=== PATIENT | male | born 1950 | race Caucasian/White ===

== ENCOUNTER 2017-02-14 05:34 | Inpatient (IN) ==
--- NOTE | 2017-02-02 11:35 | EKG Report ---
Stationary ECG Study [facility] Test Date: 02/02/2017 11:37:34 AM Pat Name: LIDA COBOS Department: Room: Gender: M Tow Mate: NEGRO : 1950 Requested by: Yuri Block Order Number: [id number] Harpal MD: ARTURO LINDSAY Intervals [place] Rate: 85 P: 999 CO: 0 QRS: 5 QRSD: 142 T: 32 QT: 375 QTc: 417 Interpretive Statements ELECTRONIC VENTRICULAR PACEMAKER LBBB Electronically Signed On 02-02-17 11:43:20 CDT by ARTURO LINDSAY [email or web address]
[2017-02-02 11:38] LABS: Basophils # 0.1 10*3/uL (0.0-0.2); Basophils % 0.6 % (0.0-0.8); Eosinophils # 0.2 10*3/uL (0.0-0.87); Eosinophils % 2.3 % (0.00-10.9); Hematocrit 47.4 VOL% (42.0-52.0); Hemoglobin 16.3 GM/DL (14.0-18.0); Immature Granulocytes % 0.3 %; Immature Granulocytes Absolute 0.03 #; Lymphocytes # 2.8 10*3/uL (1.4-4.0); Lymphocytes % 27.9 % (21.2-54.2); Mean Corpuscular HGB Conc 34.4 GM/DL (32-36); Mean Corpuscular Hemoglobin 28 PG (27-34); Mean Corpuscular Volume 82.6 FL (87-102); Mean Platelet Volume 9.9 FL (9.6-12.0); Monocytes % 10.2 % (1.7-12.7); Neutrophils # 5.8 10*3/uL (1.4-7.4); Neutrophils % 58.7 % (38.7-73.9); Platelet Count 328 T/CUMM (130-400); Red Blood Count 5.74 MC/CUMM (3.8-5.5); Red Cell Distribution Width 12.9 % (9.3-17.3); White Blood Count 9.9 T/CUMM (4-12)
[2017-02-02 11:39] LABS: Apearance,Urine CLEAR (Clear); Bilirubin,Urine Negative (Negative); Blood, Urine Negative (Negative); Glucose,Urine (UA) Negative (Negative); Ketones,Urine Negative (Negative); Mucus,Urine Occasional /LPF (Occasional); Nitrite,Urine Negative (Negative); Protein,Urine Negative; RBC,Urine <1 /HPF (0-4); Urine Color Yellow (Yellow); Urine Specific Gravity 1.015 (1.001-1.035); Urine Urobilinogen < 2.0 EU/DL (0.2-1.0); WBC,Urine 1 /HPF (0-6)
[2017-02-02 12:02] LABS: INR 1.1; Partial Thromboplastin Time 38.7 SECS (0-40)
[2017-02-02 12:34] LABS: Albumin 4.1 G/DL (3.4-5.0); Bilirubin,Total 0.8 MG/DL (0.2-1.0); Calcium 10.2 MG/DL (8.5-10.1); Osmolality,Calculated 277.5 MOS/KG (273-304); Potassium 4.7 MMOL/L (3.5-5.1); Total Protein 7.7 G/DL (6.4-8.3)
--- NOTE | 2017-02-02 13:31 | XRay Report ---
Exam: XR chest 2V Date: 02/02/2017 11:05 AM Indication: Respiratory preop evaluation of the chest Comparison: 11/14/2016 Technical: PA lateral Findings: Cardiac pacing device with implantable defibrillator leads and atrial ventricular and coronary sinus lead suspected. ASVD is present. No obvious consolidating infiltrate or effusion. The mediastinum is otherwise intact. Impression: 1. Stable appearance of the cardiac pacing defibrillator device with mild cardiomegaly without decompensation. PROCEDURE INTERPRETED AT [facility] DEPARTMENT OF RADIOLOGY Final Report Signed by: Dr. Otto Hillman
[2017-02-14] MEDS ORDERED: VANCOMYCIN INJ 1,000 MG in SODIUM CHLORIDE 0.9% 250 ML IV ONE ×2 (06:00→18:04)
--- NOTE | 2017-02-14 06:44 | History and Physical Update ---
History and Physical Update - History and Physical H&P was reviewed, the patient examined and there: are no changes in the patients condition since last H&P was completed.
[2017-02-14] MEDS ORDERED: SODIUM CHLORIDE 0.9% 100 ML IV ONE ×2 (07:02→11:56)
[2017-02-14] MEDS ORDERED: ceFAZolin 1,000 MG VIAL ONE (07:02)
[2017-02-14] MEDS ORDERED: VANCOMYCIN 1,000 MG VIAL ONE (07:02)
[2017-02-14] MEDS ORDERED: LACTATED RINGERS 1,000 ML IV SCH (07:30)
[2017-02-14] MEDS ORDERED: TRANEXAMIC ACID 1,000 MG/10 ML VIAL IV ONE (09:26)
[2017-02-14] MEDS ORDERED: BACITRACIN OINT 0.9 GM PACK TOP ONE (09:31)
[2017-02-14] MEDS ORDERED: PROPOFOL 200 MG/20 ML VIAL IV ONE (09:43)
[2017-02-14] MEDS ORDERED: ONDANSETRON 4 MG/2 ML VIAL ONE (09:43)
[2017-02-14] MEDS ORDERED: LIDOCAINE 2% 5 ML VIAL ONE (09:43)
[2017-02-14] MEDS ORDERED: ETOMIDATE 20 MG/10 ML VIAL IV ONE (09:43)
[2017-02-14] MEDS ORDERED: PHENYLEPHRINE 1 MG/10 ML SYRINGE IV ONE (09:43)
[2017-02-14] MEDS ORDERED: SUCCINYLCHOLINE 200 MG/10 ML VIAL ONE (09:43)
[2017-02-14] MEDS ORDERED: ALBUTEROL/IPRATROPIUM 3 ML NEB RESP TX PRN (09:59)
[2017-02-14] MEDS ORDERED: ZALEPLON 5 MG CAPSULE PO PRN (10:04)
[2017-02-14] MEDS ORDERED: diphenhydrAMINE CAP 25 MG CAPSULE PO PRN (10:04)
[2017-02-14] MEDS ORDERED: ONDANSETRON 4 MG/2 ML VIAL IV PRN (10:04)
[2017-02-14] MEDS ORDERED: MAGNESIUM HYDROXIDE SUSP 30 ML UDCUP PO PRN (10:04)
[2017-02-14] MEDS ORDERED: DEXTROSE 50% 25 GM/50 ML VIAL IV PRN (10:06)
[2017-02-14] MEDS ORDERED: GLUCAGON 1 MG VIAL IM PRN (10:06)
--- NOTE | 2017-02-14 10:10 | Operative Note ---
Procedure: DIAGNOSIS: Left knee primary osteoarthrosis PROCEDURE: Left total knee arthroplasty (cpt #59882) SURGEON: Sedrick ANESTHESIA: General with a postoperative adductor canal block PROCEDURE and FINDINGS: After adequate was induced, the patient's knee was prepped and draped in the usual sterile fashion. The limb was exsanguinated with Esmarch. Tourniquet was inflated to 300 mmHg. A median parapatellar approach was made. Femur was cut using an intramedullary guide and a 4 in 1 cutting jig in 5 degrees of valgus. ACL and menisci were excised. Tibia was cut using intramedullary guide. Patella was cut using freehand technique. Components were trialed. Tibial fin was prepared. Components are cemented in place using Palacos cement and modern cementing techniques. Cement was removed. A 1/8 inch Hemovac drain was placed. The knee was well-balanced and full range of motion with central tracking patella. Deep layers closed with 0-0 Vicryl. Superficial layers were closed with 2-0 and 3-0 Vicryl. Skin was approximated with brian. Bacitracin and a sterile dressing was applied. Patient was transferred to recovery. A postoperative adductor canal block is anticipated. COMPONENTS: The Francis Persona system was used. 11 CR standard femur, G natural tibia, 11 mm liner, 38 mm patella TOURNIQUET TIME: 42 minutes Surgeon / Physician: Yuri Dubose Jr. Results - Labs CBC & BMP: 02/02/17 11:23 02/02/17 11:23 Discharge Plan - Discharge Medications No Action Glimepiride 4 mg PO BID Levothyroxine Tab [Synthroid Tab] 50 mcg PO AC BREAKFAST Tramadol HCl [Tramadol Tab] 100 mg PO Q8HR PRN PRN Reason: Pain amLODIPine [Norvasc] 10 mg PO BEDTIME Metoprolol Succinate Xl [Toprol Xl] 100 mg PO QAM metFORMIN [Glucophage] 500 mg PO BID Albuterol/Ipratropium Neb [Duoneb] 3 ml RESP TX BID PRN PRN Reason: Shortness Of Breath Dabigatran [Pradaxa] 150 mg PO BID #0 Montelukast Tab [Singulair Tab] 10 mg PO DAILY - Follow Up or Referral - Forms/Instructions
[2017-02-14] MEDS ORDERED: ACETAMINOPHEN 1,000 MG/100 ML VIAL IV ONE (11:56)
[2017-02-14] MEDS ORDERED: fentaNYL 100 MCG/2 ML VIAL ONE (11:56)
[2017-02-14] MEDS ORDERED: LACTATED RINGERS 1,000 ML IV ONE (11:56)
[2017-02-14] MEDS ORDERED: MIDAZOLAM 2 MG/2 ML VIAL ONE (11:56)
[2017-02-14] MEDS ORDERED: SEVOFLURANE 1 UNIT/15 MINUTE INH ONE (11:56)
[2017-02-14] MEDS ORDERED: ALBUTEROL/IPRATROPIUM 3 ML NEB RESP TX ONE (12:07)
--- NOTE | 2017-02-14 12:12 | XRay Report ---
XR knee 2V LT Clinical Information: Joint replacement (left knee), Postop Comparison: None available Findings: Right iliac spines postsurgical changes are noted. Overlying soft tissue drains and brian are noted. Mild atherosclerotic ossification of the vasculature is partially imaged. Impression: Postoperative changes without evidence of acute complication. PROCEDURE INTERPRETED AT [facility] DEPARTMENT OF RADIOLOGY Final Report Signed by: Blade Howe
[2017-02-14] MEDS ORDERED: KETOROLAC 60 MG/2 ML VIAL IM ONE ×2 (12:18→12:19)
--- NOTE | 2017-02-14 12:32 | Anesthesia Post-Op ---
Anesthesia Post OP - Post Ansesthetic Evaluation Patient seen in post op: Yes Resp: within normal limits CV: within normal limits Mental: within normal limits Temp: within normal limits Lvqu-Ao-Jselzirms: within normal limits Nausea and Vomiting: within normal limits Pain: within normal limits
[2017-02-14] MEDS: KETOROLAC 30 MG/1 ML VIAL IV SCH ×3 (13:28→22:02)
[2017-02-14] MEDS: HYDROmorphone 2 MG/1 ML VIAL IV PRN ×3 (13:39→23:55)
[2017-02-14] MEDS: INSULIN LISPRO 100 UNIT/ML SUBCUT SCH ×3 (13:46→21:00)
--- NOTE | 2017-02-14 15:29 | Orthopedic Progress Note ---
Orthopedics - Subjective Interval history: Comfortable postop. Currently working with physical therapy. Dressing clean, dry and intact. He can perform a straight leg raise. Neurovascular okay. Plan: Continue current orders. Exam - Constitutional Vitals: Period Temp Pulse Resp BP Sys/Fraire Pulse Ox Last 24 Hr 97.0 F-98.1 F 60-74 18-28 128-157/72-99 89-94 Results - Labs CBC & BMP: 02/02/17 11:23 02/02/17 11:23
[2017-02-14] MEDS: ACETAMINOPHEN 500 MG TABLET PO SCH ×2 (17:25→20:51)
[2017-02-14] MEDS: LACTATED RINGERS 1,000 ML IV SCH ×2 (17:45→20:59)
--- NOTE | 2017-02-14 18:06 | Cardiology Consult Note ---
David Ivy Vanessa RN, am scribing for, and in the presence of, Lauren Hough DO 18 :05. Assessment and Plan - Time spent with patient Time spent with patient: Greater than 30 minutes (Due to assessment, planning, documentation, and medication review) (1) Status post left knee replacement Status: Acute Assessment and plan: Status post total left knee replacement per Dr. Dubose. Will defer primary management to orthopedic services. From a cardiac standpoint, patient is stable postoperatively. Monitor postoperative EKG. Current Visit: Yes (2) Chronic anticoagulation Status: Chronic Assessment and plan: Patient has been chronically anticoagulated with Pradaxa for stroke prevention. Patient's last dose of Pradaxa was on February 10. Anticoagulant needs to be resumed when okay from surgical standpoint however, patient has experienced some recent GI discomfort and stomach cramp and has spoken with Dr. Menjivar in regards to changing anticoagulation back to Coumadin. Patient is to resume Coumadin at 5 mg by mouth daily when okay from a surgical standpoint. He will then follow-up at Coumadin clinic for PT/INR in 2 weeks. Current Visit: Yes (3) Biventricular cardiac pacemaker in situ Status: Chronic Assessment and plan: This is stable. Patient is 100% dependent on biventricular pacing. Current Visit: Yes (4) Hypothyroidism Status: Chronic Assessment and plan: Synthroid has been continued. Current Visit: Yes (5) Hypertension Status: Chronic Assessment and plan: Overall, fairly well-controlled. Monitor closely and adjust antihypertensive regimen as indicated. Current Visit: Yes (6) History of coronary artery disease Status: Chronic Assessment and plan: Mild to moderate disease with no fixed obstructive coronary disease per left heart catheterization in October 2016. Current Visit: Yes (7) Chronic atrial fibrillation Status: Chronic Assessment and plan: Ventricular response has been well controlled with beta-henok. Patient is anticoagulated for stroke prevention with Pradaxa. Current Visit: Yes (8) CHF (congestive heart failure), NYHA class III Status: Chronic Assessment and plan: At this time, patient appears to be fairly well compensated with no overt s/s of heart failure. Current Visit: No (9) Diabetes mellitus Status: Chronic Assessment and plan: Continue SSI. Current Visit: No (10) Non-ischemic cardiomyopathy Status: Chronic Assessment and plan: Decreased EF 35%. Patient is now status post biventricular AICD implant. Current Visit: No (11) CED (obstructive sleep apnea) Status: Chronic Current Visit: Yes (12) Hyperlipidemia Status: Chronic Current Visit: Yes History of Present Illness - Data of Consult Patient: known to practice within the last 3 years Consult date: 02/14/17 Requesting Physician: Yuri Dubose Jr. - Consult Narrative Reason for consult: katharina operative cardiac medical management History of present illness: PRIMARY GLOBAL CTO: DR. MENJIVAR Mr. Mayen is a 66 year old white male with risk factors significant for: age, hypertension, diabetes, hyperlipidemia, known personal and family history of coronary artery disease. Past medical history includes chronic atrial fibrillation, obstructive sleep apnea, hypothyroidism, nonischemic cardiomyopathy with EF 35%, status post AV node ablation with biventricular AICD implant in October [address] Rojas. He is chronically anticoagulated with Pradaxa. He has been evaluated by Dr. Farris for persistent cough and dyspnea with exertion. He has had PFTs completed and has been diagnosed with bronchospastic airway disease. Prior to biventricular pacing implant, patient underwent left and right heart catheterization in October 2016 for exertional dyspnea and chest discomfort showed some mild to moderate coronary disease but no significant obstructive disease and moderate pulmonary hypertension with PA pressure 40-42 mmHg. Patient was last seen in clinic by Dr. Menjivar on December, and at that time persistent cough had resolved after Cozaar was stopped per Dr. Farris. He did not further exertional dyspnea or other complaint. Patient's blood pressure is reasonably controlled on current medication regimen. He was cleared for total left knee replacement surgery from a cardiovascular standpoint. Patient is now status post total left knee replacement cardiology now asked to see for perioperative cardiac medical management. Patient presented to [facility] earlier this month for plan orthopedic surgery, and this was performed without event per Dr. Dubose. Patient's reports patient had some difficulty with oxygen saturations while in PACU and pain medication had to be conserved. However, patient was transferred to [facility] floor from PACU on supplemental oxygen via nasal cannula, and upon bedside exam, SaO2 is 97%. Patient is awake and pleasant. He has just received IV Dilaudid for left knee discomfort. Denies chest pain, dyspnea, or anginal complaint. No dizziness, palpitation presyncope, or other. BP 134/89. Mr. Mayen's biggest concern at this time is in regards to his anticoagulation and desire to change from Pradaxa to Coumadin. CC: Yuri Dubose Jr., - Home Medications and Allergies Home Medications: Home Medications Medication Instructions Recorded Confirmed Type Glimepiride 4 mg PO BID 05/27/16 02/14/17 History Levothyroxine Tab [Synthroid Tab] 50 mcg PO AC BREAKFAST 05/27/16 02/14/17 History Tramadol HCl [Tramadol Tab] 100 mg PO Q8HR PRN 05/27/16 02/14/17 History amLODIPine [Norvasc] 10 mg PO BEDTIME 10/26/16 02/14/17 History Metoprolol Succinate Xl [Toprol Xl] 100 mg PO QAM 11/10/16 02/14/17 History Dabigatran [Pradaxa] 150 mg PO BID #0 11/13/16 02/14/17 Rx metFORMIN [Glucophage] 500 mg PO BID 11/14/16 02/14/17 History Albuterol/Ipratropium Neb [Duoneb] 3 ml RESP TX BID PRN 02/02/17 02/14/17 History Montelukast Tab [Singulair Tab] 10 mg PO DAILY 02/02/17 02/14/17 History Allergies/Adverse Reactions: Allergies Allergy/AdvReac Type Severity Reaction Status Date / Time codeine Allergy Severe Confusion Verified 02/14/17 07:17 morphine Allergy Unknown Confusion Verified 02/14/17 07:17 Ryhoems-Prb-Nlu Reductase Allergy Unknown Fatigued Verified 02/14/17 07:17 Inhibitor Sulfa (Sulfonamide Allergy Unknown RASH Verified 02/14/17 07:17 Antibiotics) 12 point system: reviewed and no additional remarkable complaints except as stated - EENT Nose, mouth and throat: Absent: dysphagia - Cardiovascular Cardiovascular: Absent: chest pain at rest, edema - Respiratory Respiratory: Absent: dyspnea, wheezing - Gastrointestinal Gastrointestinal: Present: bloating, cramping, dyspepsia, heartburn. Absent: fecal incontinence - Genitourinary Genitourinary: Absent: difficulty urinating - Musculoskeletal Musculoskeletal: Absent: joint swelling - Neurological Neurological: Present: abnormal gait - Psychiatric Psychiatric: Absent: anxiety, depression - Endocrine Endocrine: Absent: cold intolerance, heat intolerance - Hematologic/Lymphatic Hematologic/Lymphatic: Absent: easy bleeding, easy bruising Medical,Surgical,& Family Hx - Medical History Cardio: History of: Cardiac Dysrhythmia (afib), Hypertension, Pacemaker (2004; REPLACEMENT 2013), Cardiovascular Problems (DR MENJIVAR/DR ROJAS. CARDIOMEGLY. PT RELIANT ON PACEMAKER.) Neurology: No history of: Seizures HEENT: History of: Ear Problem (FALSE PASS), Eye Problem (READING GLASSES) Endocrine: History of: Diabetes Mellitus (NIDDM), Thyroid Disorder Respiratory: History of: Obstructive Sleep Apnea (non compliant; PT DOES NOT USE CPAP. BREATHING TX BID.), Respiratory Problems (FLU VAC-NO;PNEU VAC- NO. SOB AND COUGH WTH WHITE SPUTUM. DR FARRIS.) Genitourinary: History of: Kidney Stones (15 years ago) Musculoskeletal: History of: Back/Neck Problems (neck 1982, back 2013; [facility]) - Surgical History Cardiac Surgeries: Sugical HX of: Cardiac Catheterization, Cardiac Surgery ( ABLATION 06/2016. DR ROJAS.), Internal Defibrillator Orthopedic Surgeries: Surgical HX of;: Implanted Devices (PACEMAKER), Spinal Surgery (NECK SURGERY 1987; LASER 2013) - Family History Family History: Reports;: Family Cancer (father prostate cancer), Family Diabetes (mother), Family Heart Disease (parents), Family Hypertension (parents) - Social History Smoking Status: Never smoker Frequency of Alcohol Use: None Type of Drug Use: None Marital Status: Lives With:: Spouse Functional capacity: independent ambulation Physical Examination Vital Signs Temp Pulse Resp BP Pulse Ox 97.0 F L 66 18 141/91 94 L 02/14/17 07:23 02/14/17 07:23 02/14/17 07:23 02/14/17 07:23 02/14/17 07:23 General: Present: No Apparent Distress, Other (Overweight) HEENT: Present: PERRL, Normocephaly, Mucus Membranes Dry. Absent: Jaundice, Pallor Neck: Present: Supple Neck, Midline Trachea, No JVD/HJR, No Masses, No Bruit Cardiac: Present: Reg Rate and Rhythm. Absent: Tachycardia, Bradycardia Lungs: Present: Clear Ascult./Percussion, Oxygen (2 L/NC), No Wheeze, Rales, Rhonchi Neuro: Present: Grossly Intact. Absent: Numbness, Weakness, Resting Tremor, Essential Tremor Abdomen: Present: Soft, Active Bowel Sounds. Absent: Tender, Firm, Distended Skin: Present: Clear. Absent: Rash, Suspicious Lesions Musculoskeletal: Present: Decreased Range of Motion (left knee s/p operation) Extremities: Present: No Clubbing, No Cyanosis, No Edema, Normal Upper Extr. Pulses (3+ bilaterally), Normal Lower Extr. Pulses (2+ bilaterally), Capillary Refill (Normal), Other (Left lower extremity with dry and intact surgical dressing. Drain in place.) Result/EKG - Labs CBC & BMP: 02/02/17 11:23 02/02/17 11:23 Lab Results: I have reviewed the past 24 hour labs Labs: Laboratory Results - last 24 hr 02/14/17 02/14/17 06:42 06:45 POC Glucose 183 H Blood Type A POSITIVE Antibody Screen Negative - Diagnostic Findings Procedure: Chest x-ray: image reviewed by me, report reviewed by me - EKG EKG results: interpreted by me, no acute changes (Ventricularly paced rhythm) I, Lauren Hough, , personally performed the services described in this documentation, ascribed by Angie Hernandez RN in my presence, and it is both accurate and complete [id number] .
[2017-02-14] MEDS: DOCUSATE SODIUM 100 MG CAPSULE PO SCH (20:47)
[2017-02-14] MEDS: amLODIPine 10 MG TABLET PO SCH (20:49)
[2017-02-14] MEDS: GLIMEPIRIDE 4 MG TABLET PO SCH (20:49)
[2017-02-14] MEDS: ceFAZolin 2,000 MG in PREMIX 1 EACH IV SCH (20:53)
[2017-02-14] MEDS: DABIGATRAN 150 MG CAPSULE PO SCH (21:00)
[2017-02-15] MEDS: ceFAZolin 2,000 MG in PREMIX 1 EACH IV SCH (02:27)
[2017-02-15] MEDS: ACETAMINOPHEN 500 MG TABLET PO SCH ×2 (02:27→08:57)
[2017-02-15] MEDS: HYDROmorphone 2 MG/1 ML VIAL IV PRN ×3 (05:22→21:25)
[2017-02-15] MEDS: KETOROLAC 30 MG/1 ML VIAL IV SCH (05:23)
[2017-02-15] MEDS: LACTATED RINGERS 1,000 ML IV SCH (05:29)
[2017-02-15 05:51] LABS: Basophils % 0.4 % (0.0-0.8); Eosinophils # 0.2 10*3/uL (0.0-0.87); Eosinophils % 2.2 % (0.00-10.9); Hematocrit 38.9 VOL% (42.0-52.0); Hemoglobin 12.8 GM/DL (14.0-18.0); Immature Granulocytes % 0.5 %; Immature Granulocytes Absolute 0.04 #; Lymphocytes # 2.6 10*3/uL (1.4-4.0); Lymphocytes % 30.2 % (21.2-54.2); Mean Corpuscular HGB Conc 32.9 GM/DL (32-36); Mean Corpuscular Hemoglobin 28 PG (27-34); Mean Corpuscular Volume 84.7 FL (87-102); Mean Platelet Volume 10.1 FL (9.6-12.0); Monocytes # 1.1 10*3/uL (0.11-0.8); Monocytes % 12.8 % (1.7-12.7); Neutrophils # 4.6 10*3/uL (1.4-7.4); Neutrophils % 53.9 % (38.7-73.9); Platelet Count 223 T/CUMM (130-400); Red Blood Count 4.59 MC/CUMM (3.8-5.5); White Blood Count 8.5 T/CUMM (4-12)
[2017-02-15 06:19] LABS: Calcium 8.5 MG/DL (8.5-10.1); Magnesium 1.8 MG/DL (1.8-2.4); Osmolality,Calculated 280.4 MOS/KG (273-304); Potassium 4.5 MMOL/L (3.5-5.1)
--- NOTE | 2017-02-15 07:28 | Orthopedic Progress Note ---
Orthopedics - Subjective Interval history: Comfortable this morning. Dressing clean, dry and intact. His left lower extremities neurovascular change. Plan: Mobilize with physical therapy. Start CPM. Incentive spirometry encouraged. Discharge planning. Exam - Constitutional Vitals: Period Temp Pulse Resp BP Sys/Fraire Pulse Ox Last 24 Hr 97.0 F-98.5 F 60-74 16-28 124-157/72-99 89-98 Results - Labs CBC & BMP: 02/15/17 05:24 02/15/17 05:24
[2017-02-15] MEDS: INSULIN LISPRO 100 UNIT/ML SUBCUT SCH ×4 (08:24→21:29)
[2017-02-15] MEDS: GLIMEPIRIDE 4 MG TABLET PO SCH ×2 (08:57→21:24)
[2017-02-15] MEDS: DOCUSATE SODIUM 100 MG CAPSULE PO SCH ×2 (08:58→21:23)
[2017-02-15] MEDS: LEVOTHYROXINE 50 MCG TABLET PO SCH (08:58)
[2017-02-15] MEDS: MONTELUKAST 10 MG TABLET PO SCH (08:58)
[2017-02-15] MEDS: metFORMIN 500 MG TABLET PO SCH ×2 (09:01→21:24)
[2017-02-15] MEDS: METOPROLOL SUCCINATE XL 50 MG TABLET PO SCH (09:01)
[2017-02-15] MEDS: DABIGATRAN 150 MG CAPSULE PO SCH (09:02)
--- NOTE | 2017-02-15 09:25 | Cardiology Progress Note ---
David Ivy Vanessa RN, am scribing for, and in the presence of, Lauren Hough DO 09 :25. Assessment and Plan - Time spent with patient Time spent with patient: Greater than 30 minutes (1) Status post left knee replacement Status: Acute Assessment and plan: Postoperative day #1 status post total left knee replaced per Dr. Dubose. Will defer primary management to orthopedic services. Perioperatively, patient is doing well from a cardiac standpoint. He is not having any anginal complaint. Initiate Coumadin today Current Visit: Yes (2) Chronic anticoagulation Status: Chronic Assessment and plan: Patient has been chronically anticoagulated with Pradaxa for stroke prevention. Patient's last dose of Pradaxa was on February 10. Anticoagulant needs to be resumed when okay from surgical standpoint however, patient has experienced some recent GI discomfort and stomach cramp and has spoken with Dr. Menjivar in regards to changing anticoagulation back to Coumadin. Patient is to resume Coumadin at 5 mg by mouth daily when okay from a surgical standpoint. He will then follow-up at Coumadin clinic for PT/INR in 2 weeks. Current Visit: Yes (3) Biventricular cardiac pacemaker in situ Status: Chronic Assessment and plan: This is stable. Patient is 100% dependent on biventricular pacing. Current Visit: Yes (4) Hypothyroidism Status: Chronic Assessment and plan: Synthroid has been continued. Current Visit: Yes (5) Hypertension Status: Chronic Assessment and plan: Overall, fairly well-controlled. Monitor closely and adjust antihypertensive regimen as indicated. Current Visit: Yes (6) History of coronary artery disease Status: Chronic Assessment and plan: Mild to moderate disease with no fixed obstructive coronary disease per left heart catheterization in October 2016. Current Visit: Yes (7) Chronic atrial fibrillation Status: Chronic Assessment and plan: Ventricular response has been well controlled with beta-henok. Patient is anticoagulated for stroke prevention with Pradaxa. Current Visit: Yes (8) CHF (congestive heart failure), NYHA class III Status: Chronic Assessment and plan: At this time, patient appears to be fairly well compensated with no overt s/s of heart failure. Current Visit: No (9) Diabetes mellitus Status: Chronic Assessment and plan: Continue SSI. Current Visit: No (10) Non-ischemic cardiomyopathy Status: Chronic Assessment and plan: Decreased EF 35%. He has a biventricular AICD implant in place. Current Visit: No (11) CED (obstructive sleep apnea) Status: Chronic Current Visit: Yes (12) Hyperlipidemia Status: Chronic Current Visit: Yes Cardiology - PN: Subj Interval history: PRIMARY TOWER CLEANER: DR. MENJIVAR SUMMARY: Mr. Mayen is a 66 year old white male with risk factors significant for: age, hypertension, diabetes, hyperlipidemia, known personal and family history of coronary artery disease. Past medical history includes chronic atrial fibrillation, obstructive sleep apnea, hypothyroidism, nonischemic cardiomyopathy with EF 35%, status post AV node ablation with biventricular AICD implant in October [address] Rojas. He is chronically anticoagulated with Pradaxa. He has been evaluated by Dr. Torres for persistent cough and dyspnea with exertion. He has had PFTs completed and has been diagnosed with bronchospastic airway disease. Patient underwent left and right heart catheterization in October 2016 for exertional dyspnea and chest discomfort showed some mild to moderate coronary disease but no significant obstructive disease and moderate pulmonary hypertension with PA pressure 40-42 mmHg. He was last seen in clinic by Dr. Menjivar on January 17, 2017, and at that time persistent cough had resolved after Cozaar was stopped per Dr. Torres. Patient was not having further exertional dyspnea or other complaint. Patient's blood pressure is reasonably controlled on current medication regimen. He was cleared for total left knee replacement surgery from a cardiovascular standpoint. Patient is now status post total left knee replacement cardiology now asked to see for perioperative cardiac medical management. January: Mr. Mayen is awake and alert this morning. No acute distress noted. He is postoperative day status post total left knee replacement. No chest pain, dyspnea, or anginal complaint this morning. Appetite is good this morning. Afebrile, vitals are stable with SBP range 115-135 mmHg. Labs reviewed. Postop H&H stable 12.8/38.9. Potassium 4.5. Borderline hypomagnesemic with MG +1.8. Renal function stable with creatinine 0.9. I discussed with the patient about resumption of his home Coumadin dose. He was on 7.5 mg daily except 10 mg 3 days a week. We will try to resume this and follow serial INRs. He will be a few days before his INR is therapeutic. Exam (Progress Note) - Constitutional Vitals: Period Temp Pulse Resp BP Sys/Fraire Pulse Ox Last 24 Hr 97.0 F-98.5 F 60-74 16-28 117-157/71-99 89-98 Exam: General: Present: No Apparent Distress, Other (Overweight) HEENT: Present: PERRL, Normocephaly, Mucus Membranes Dry. Absent: Jaundice, Pallor Neck: Present: Supple Neck, Midline Trachea, No JVD/HJR, No Masses, No Bruit Cardiac: Present: Reg Rate and Rhythm. Absent: Tachycardia, Bradycardia he is paced Lungs: Present: Clear Ascult./Percussion, No Wheeze, Rales, Rhonchi. No supplemental oxygen today. Neuro: Present: Grossly Intact. Absent: Numbness, Weakness, Resting Tremor, Essential Tremor Abdomen: Present: Soft, Active Bowel Sounds. Absent: Tender, Firm, Distended Skin: Present: Clear, warm, dry. Absent: Rash, Suspicious Lesions Musculoskeletal: Present: Decreased Range of Motion (left knee s/p operation) Extremities: Present: No Clubbing, No Cyanosis, No Edema, Normal Upper Extr. Pulses (3+ bilaterally), Normal Lower Extr. Pulses (2+ bilaterally), Capillary Refill (Normal), Other (Left lower extremity with dry and intact surgical dressing. Drain removed) Result/EKG - Labs CBC & BMP: 02/15/17 05:24 02/15/17 05:24 Lab Results: I have reviewed the past 24 hour labs Labs: Laboratory Results - last 24 hr 02/14/17 02/14/17 02/14/17 13:40 15:42 20:04 WBC RBC Hgb Hct MCV MCH MCHC RDW Plt Count MPV Neut % (Auto) Lymph % (Auto) [place] % (Auto) Eos % (Auto) Baso % (Auto) Neut # (Auto) Lymph # (Auto) [place] # (Auto) Eos # (Auto) Baso # (Auto) Immature Gran % Nucleated RBC % Immature Gran # Nucleated RBCs # Sodium Potassium Chloride Carbon Dioxide Anion Gap BUN Creatinine GFR Calculation BUN/Creatinine Ratio Glucose POC Glucose 149 H 193 H 172 H Calculated Osmolality Calcium Magnesium 02/15/17 02/15/17 02/15/17 05:24 05:24 07:03 WBC 8.5 RBC 4.59 Hgb 12.8 L Hct 38.9 L MCV 84.7 L MCH 28 MCHC 32.9 RDW 13.0 Plt Count 223 MPV 10.1 Neut % (Auto) 53.9 Lymph % (Auto) 30.2 [place] % (Auto) 12.8 H Eos % (Auto) 2.2 Baso % (Auto) 0.4 Neut # (Auto) 4.6 Lymph # (Auto) 2.6 [place] # (Auto) 1.1 H Eos # (Auto) 0.2 Baso # (Auto) 0.0 Immature Gran % 0.5 Nucleated RBC % 0.0 Immature Gran # 0.04 Nucleated RBCs # 0.00 Sodium 140 Potassium 4.5 Chloride 103 Carbon Dioxide 32 Anion Gap 9.5 BUN 16 Creatinine 0.90 GFR Calculation 118 BUN/Creatinine Ratio 17.00 Glucose 111 H POC Glucose 117 H Calculated Osmolality 280.4 Calcium 8.5 Magnesium 1.8 - EKG EKG results: interpreted by me, no acute changes [place] Ivy Shea, DO, personally performed the services described in this documentation, ascribed by Angie Hernandez RN in my presence, and it is both accurate and complete .
--- NOTE | 2017-02-15 09:29 | Pulmonology Progress Note ---
Pulmonary - PN: Subj Interval history: This 66-year-old white male who is 1 day postop total knee replacement. He is doing very well. I saw this patient in my office along with Anahi Arguello nurse practitioner for preop clearance. He was also seen by Dr. Brendan Menjivar from a cardiology standpoint. The patient's problems include degenerative joint disease, arteriosclerotic heart disease, atrial fib., Chronic Coumadin therapy, diabetes mellitus type 2 , hyperlipidemia, hypertension, hypothyroidism, mitral regurgitation, obstructive sleep apnea. He has had a history of cough and bronchospastic disease which is come under good control. H&H is 12.8/38.9. White count is 8554 segs 30 lymphs and 13 lymphocytes electrolytes are normal. Creatinine is 0.9 with a BUN of 16. Patient was seen along with his . There are no complaints and no new requests. He feels like he is doing fine. Physical exam. Vital signs. See below Face. Symmetrical. No edema of the lips or tongue. Neck. Symmetrical. No meningismus. Lymphatics. No submandibular cervical supraclavicular or epitrochlear adenopathy Chest. Symmetrical and wheeze free Heart. No gallop Abdomen nondistended. Bowel sounds are present Extremities. Nothing to suggest deep venous thrombophlebitis The remainder of the physical exam is negative. Plan. 1. Continue home medicines. 2. Deep venous thrombophlebitis. Prevention protocol Exam (Progress Note) - Constitutional Vitals: Period Temp Pulse Resp BP Sys/Fraire Pulse Ox Last 24 Hr 97.0 F-98.5 F 60-74 16-28 117-157/71-99 89-98 Results - Labs CBC & BMP: 02/15/17 05:24 02/15/17 05:24
[2017-02-15] MEDS ORDERED: ACETAMINOPHEN 325 MG TABLET PO PRN (12:00)
[2017-02-15] MEDS: CELECOXIB 200 MG CAPSULE PO SCH (12:41)
[2017-02-15] MEDS: ENOXAPARIN 100 MG/ML SYRINGE SUBCUT SCH ×2 (12:43→21:26)
--- NOTE | 2017-02-15 14:28 | Pathology Report from [facility] ---
[facility] ACCESSION # : [id number] PATIENT NAME : Lida Mayen ORDERING DR : ADELINE TOM MD CLINICAL HX: LT knee osteoarthritis POST-OP DX: Same SPECIMEN INFO: LT knee bone & tissue GROSS DESCRIPTION: Received in formalin labeled LIDA MAYEN are multiple fragments of bone, soft tissue and cartilage measuring 15.0 x 8.0 cm in aggregate. The articular surfaces are focally degenerative with areas of subchondral eburnation seen. Rod Filler tissue is submitted in one cassette. DIAGNOSIS FOR LIDA MAYEN: LEFT KNEE BONE & TISSUE, TOTAL REPLACEMENT: Osteoarthritis. COLLECTED DATE: 02/14/2017 [facility] REPORT DATE: 02/15/2017 ELECTRONICALLY SIGNED BY: Sarah Carreon M.D. 02/15/2017 - 10:28:24 [facility]ENTERGr[facility]
[2017-02-15] MEDS ORDERED: WARFARIN 7.5 MG TABLET PO SCH (18:00)
[2017-02-15] MEDS: amLODIPine 10 MG TABLET PO SCH (21:25)
[2017-02-16] MEDS: HYDROmorphone 2 MG/1 ML VIAL IV PRN ×2 (03:21→05:13)
[2017-02-16 06:55] LABS: Basophils % 0.4 % (0.0-0.8); Eosinophils # 0.1 10*3/uL (0.0-0.87); Eosinophils % 1.2 % (0.00-10.9); Hematocrit 39.6 VOL% (42.0-52.0); Immature Granulocytes % 0.4 %; Immature Granulocytes Absolute 0.03 #; Lymphocytes # 1.9 10*3/uL (1.4-4.0); Lymphocytes % 22.5 % (21.2-54.2); Mean Corpuscular HGB Conc 32.8 GM/DL (32-36); Mean Corpuscular Hemoglobin 28 PG (27-34); Mean Corpuscular Volume 84.8 FL (87-102); Mean Platelet Volume 10.9 FL (9.6-12.0); Neutrophils # 5.2 10*3/uL (1.4-7.4); Neutrophils % 63.5 % (38.7-73.9); Platelet Count 218 T/CUMM (130-400); Red Blood Count 4.67 MC/CUMM (3.8-5.5); White Blood Count 8.2 T/CUMM (4-12)
--- NOTE | 2017-02-16 07:24 | Discharge Summary ---
Hospital Course - Hospital Course Hospital Course: Demetri Mayen was admitted after undergoing an uncomplicated left total knee replacement. He received perioperative DVT and antimicrobial prophylaxis. Cardiology and pulmonology were consulted to help manage his medical problems perioperatively. Mr. Mayne did extraordinarily well and was discharged home postoperative day #2 in stable condition. The patient had discussions with cardiology regarding switching back to Coumadin. This was restarted during his hospitalization. His dressing is clean, dry and intact. Left lower extremities neurovascularly unchanged. Discharge Plan - Discharge Data Disposition: Home Health Service Condition at Discharge: Stable Discharge Diet: diabetic diet Hygiene: may shower Weight Bearing at Discharge: weight bear as tolerated Driving: not until seen by doctor - Discharge Medications New HYDROcodone/ACETAMIN 7.5-325 [[place] 7.5-325] 1 tablet PO Q4H PRN tablet PRN Reason: Pain Moderate (4-7) Warfarin [Coumadin] 7.5 mg PO DAILY@1800 tablet HYDROcodone/ACETAMIN 7.5-325 [[place] 7.5-325] 2 tablet PO Q4H PRN tablet PRN Reason: Moderate Pain unrelieved by 1 Continue Glimepiride 4 mg PO BID Levothyroxine Tab [Synthroid Tab] 50 mcg PO AC BREAKFAST amLODIPine [Norvasc] 10 mg PO BEDTIME Metoprolol Succinate Xl [Toprol Xl] 100 mg PO QAM metFORMIN [Glucophage] 500 mg PO BID Albuterol/Ipratropium Neb [Duoneb] 3 ml RESP TX BID PRN PRN Reason: Shortness Of Breath Montelukast Tab [Singulair Tab] 10 mg PO DAILY Discontinued Tramadol HCl [Tramadol Tab] 100 mg PO Q8HR PRN PRN Reason: Pain Dabigatran [Pradaxa] 150 mg PO BID #0 - Follow Up or Referral - Forms/Instructions Additional Discharge Instructions: Daily dry dressing changes. Weightbearing as tolerated. CPM for 3 weeks. Arrange walker and bedside commode for home use. Wear DHAVAL hose for 1 month. Discontinue brian and Steri-Strip wound on February 25, 2017. Follow-up appointment in 4 weeks. Prescription for [place] 7.5 with 30 tablets was written. Get instructions from cardiology regarding warfarin. Exam - Constitutional Vitals: Period Temp Pulse Resp BP Sys/Fraire Pulse Ox Last 24 Hr 96.6 F-98.0 F 59-69 16-18 109-157/67-90 90-95 Discharge Results Procedures and tests throughout hospitalization: Pending Orders 02/17/17 04:00 Comp Blood Count Auto Diff IN AM Labs on day of discharge: Labs from last 24 hours 02/16/17 02/16/17 02/15/17 07:15 06:15 20:57 WBC 8.2 RBC 4.67 Hgb 13.0 L Hct 39.6 L MCV 84.8 L MCH 28 MCHC 32.8 RDW 13.0 Plt Count 218 MPV 10.9 Neut % (Auto) 63.5 Lymph % (Auto) 22.5 [place] % (Auto) 12.0 Eos % (Auto) 1.2 Baso % (Auto) 0.4 Neut # (Auto) 5.2 Lymph # (Auto) 1.9 [place] # (Auto) 1.0 H Eos # (Auto) 0.1 Baso # (Auto) 0.0 Immature Gran % 0.4 Nucleated RBC % 0.0 Immature Gran # 0.03 Nucleated RBCs # 0.00 POC Glucose 143 H 179 H 02/15/17 02/15/17 17:20 11:05 WBC RBC Hgb Hct MCV MCH MCHC RDW Plt Count MPV Neut % (Auto) Lymph % (Auto) [place] % (Auto) Eos % (Auto) Baso % (Auto) Neut # (Auto) Lymph # (Auto) [place] # (Auto) Eos # (Auto) Baso # (Auto) Immature Gran % Nucleated RBC % Immature Gran # Nucleated RBCs # POC Glucose 218 H 162 H DS: Provider Date of admission: 02/14/17 05:34 Primary care physician: Jesse Alfaro DO Attending physician on admission: Yuri Dubose Jr., Consults: 02/14/17 10:04 Consult to Case Mgmt/Social Srvs [CONS] Routine Reason for Case Mgmt/Social Srvs: Rehab Home Health Equipment Consult Comment: Bedside Commode, CPM, del to rm 322 before pt is D/C'd; Pt 5ft 11in 251 lbs Consult to Occupational Therapy [CONS] Routine Reason for Occupational Therapy: Evaluate and Treat Consult Comment: ADL's Consult to Physical Therapy [CONS] Routine Reason for Physical Therapy: Evaluate and Treat Gait Training Start Therapy: Today 02/14/17 13:14 Consult to Physician [CONS] Routine Comment: Consulting Provider: Luis Eduardo Menjivar Consulting Provider Notified: Yes When should Consulting Provider be notified: Now Person Notified: bebo called Date Notified: 02/14/17 Time Notified: 13:16 Consult to Physician [CONS] Routine Comment: Consulting Provider: Otto Torres Consulting Provider Notified: Yes When should Consulting Provider be notified: Now Person Notified: delta called Date Notified: 02/14/17 Time Notified: 13:19 02/14/17 14:46 Consult to Dietitian [CONS] Routine Reason for Dietitian: Dietary Consult 02/15/17 12:31 Consult to Physical Therapy [CONS] Routine Reason for Physical Therapy: Other Consult Comment: Deliver a Standard Walker to patient's room before he is D/C 'd home. Discharging clinician: Yuri Dubose Jr., Expected date of discharge: 02/16/17
[2017-02-16] MEDS: INSULIN LISPRO 100 UNIT/ML SUBCUT SCH ×2 (07:42→11:51)
[2017-02-16] MEDS: CELECOXIB 200 MG CAPSULE PO SCH (08:52)
[2017-02-16] MEDS: LEVOTHYROXINE 50 MCG TABLET PO SCH (08:53)
[2017-02-16] MEDS: DOCUSATE SODIUM 100 MG CAPSULE PO SCH (08:53)
[2017-02-16] MEDS: MONTELUKAST 10 MG TABLET PO SCH (08:53)
[2017-02-16] MEDS: METOPROLOL SUCCINATE XL 50 MG TABLET PO SCH (08:54)
[2017-02-16] MEDS: GLIMEPIRIDE 4 MG TABLET PO SCH (08:55)
[2017-02-16] MEDS: metFORMIN 500 MG TABLET PO SCH (08:55)
--- NOTE | 2017-02-16 10:31 | Pulmonology Progress Note ---
Pulmonary - PN: Subj Interval history: This 66-year-old white male who is 1 day postop total knee replacement. He is doing very well. I saw this patient in my office along with Anahi Arguello nurse practitioner for preop clearance. He was also seen by Dr. Brendan Menjivar from a cardiology standpoint. The patient's problems include degenerative joint disease, arteriosclerotic heart disease, atrial fib., Chronic Coumadin therapy, diabetes mellitus type 2 , hyperlipidemia, hypertension, hypothyroidism, mitral regurgitation, obstructive sleep apnea. He has had a history of cough and bronchospastic disease which is come under good control. H&H is 12.8/38.9. White count is 8554 segs 30 lymphs and 13 lymphocytes electrolytes are normal. Creatinine is 0.9 with a BUN of 16. Patient was seen along with his . There are no complaints and no new requests. He feels like he is doing fine. 02/16/2017. Patient was seen along with his . He is for discharge later on today. He is done very well with no complications. He wants to stop his Glucophage. He says it makes him feel bad. We are going to cut the dose in half and he will follow-up appointment with Dr. Jose Francisco pryor to make adjustments. We offered to change his medicines here but his said they would be too many things to do it once. H&H is stable at 13.0/39.6. White count is 8200. Platelets are 218,000. Glucoses are under good control. Urine showed no evidence of infection Physical exam. Vital signs. See below Face. Symmetrical. No edema of the lips or tongue. Neck. Symmetrical. No meningismus. Lymphatics. No submandibular cervical supraclavicular or epitrochlear adenopathy Chest. Symmetrical and wheeze free Heart. No gallop Abdomen nondistended. Bowel sounds are present Extremities. Nothing to suggest deep venous thrombophlebitis The remainder of the physical exam is negative. Plan. 02/15/2007 1. Continue home medicines. 2. Deep venous thrombophlebitis. Prevention protocol 02/16/2017. 1. See my note above 2. Agree with discharge. We will sign off. 3. Follow-up appointment with Dr. Jose Francisco pryor. Exam (Progress Note) - Constitutional Vitals: Period Temp Pulse Resp BP Sys/Fraire Pulse Ox Last 24 Hr 96.6 F-98.8 F 59-69 16-18 109-157/67-90 90-95 Results - Labs CBC & BMP: 02/16/17 06:15 02/15/17 05:24 Specialty Discharge - Follow Up or Referrals Follow up with: Yuri Dubose Jr., MD [Physician] - 03/17/17 9:10 am Luis Eduardo Menjivar MD [Physician] - 2 Weeks (Coumadin clinic )
[2017-02-16 11:20] VITALS: BP 149/86
--- NOTE | 2017-02-16 11:49 | Cardiology Progress Note ---
David Ivy Vanessa, RN, am scribing for, and in the presence of, Lauren Hough DO 11 :49. Assessment and Plan - Time spent with patient Time spent with patient: Greater than 30 minutes (1) Status post left knee replacement Status: Acute Assessment and plan: Post operatively, patient is doing well from a cardiac standpoint. He is not having any anginal complaint. From a cardiac standpoint, he is stable for discharge home today. Current Visit: Yes (2) Chronic anticoagulation Status: Chronic Assessment and plan: Patient has been chronically anticoagulated with Pradaxa for stroke prevention. Patient's last dose of Pradaxa was on February 10. Patient received 1 dose of subcutaneous Arixtra yesterday. Coumadin was restarted yesterday, and he is being discharged home with continue Coumadin dose 7.5 mg by mouth daily. Current Visit: Yes (3) Biventricular cardiac pacemaker in situ Status: Chronic Assessment and plan: This is stable. Patient is 100% dependent on biventricular pacing. Current Visit: Yes (4) Hypothyroidism Status: Chronic Assessment and plan: Synthroid has been continued. Current Visit: Yes (5) Hypertension Status: Chronic Assessment and plan: Overall, fairly well-controlled. Monitor closely and adjust antihypertensive regimen as indicated. Current Visit: Yes (6) History of coronary artery disease Status: Chronic Assessment and plan: Mild to moderate disease with no fixed obstructive coronary disease per left heart catheterization in October 2016. Current Visit: Yes (7) Chronic atrial fibrillation Status: Chronic Assessment and plan: Ventricular response has been well controlled with beta-henok. Patient is anticoagulated for stroke prevention with Pradaxa. Current Visit: Yes (8) CHF (congestive heart failure), NYHA class III Status: Chronic Assessment and plan: At this time, patient appears to be fairly well compensated with no overt s/s of heart failure. Current Visit: No (9) Diabetes mellitus Status: Chronic Assessment and plan: Continue SSI. Current Visit: No (10) Non-ischemic cardiomyopathy Status: Chronic Assessment and plan: Decreased EF 35%. He has a biventricular AICD implant in place. Current Visit: No (11) CED (obstructive sleep apnea) Status: Chronic Current Visit: Yes (12) Hyperlipidemia Status: Chronic Current Visit: Yes Cardiology - PN: Subj Interval history: The patient has no new complaints. No chest pain, no shortness of breath. Exam (Progress Note) - Constitutional Vitals: Period Temp Pulse Resp BP Sys/Fraire Pulse Ox Last 24 Hr 96.6 F-98.8 F 59-69 16-18 109-157/67-90 90-95 Exam: PRIMARY CHAIN TESTING MACHINE OPERATOR: DR. MENJIVAR SUMMARY: Mr. Mayen is a 66 year old white male with risk factors significant for: age, hypertension, diabetes, hyperlipidemia, known personal and family history of coronary artery disease. Past medical history includes chronic atrial fibrillation, obstructive sleep apnea, hypothyroidism, nonischemic cardiomyopathy with EF 35%, status post AV node ablation with biventricular AICD implant in October [address] Rojas. He is chronically anticoagulated with Pradaxa. He has been evaluated by Dr. Torres for persistent cough and dyspnea with exertion. He has had PFTs completed and has been diagnosed with bronchospastic airway disease. Patient underwent left and right heart catheterization in October 2016 for exertional dyspnea and chest discomfort showed some mild to moderate coronary disease but no significant obstructive disease and moderate pulmonary hypertension with PA pressure 40-42 mmHg. He was last seen in clinic by Dr. Menjivar on January 17, 2017, and at that time persistent cough had resolved after Cozaar was stopped per Dr. Torres. Patient was not having further exertional dyspnea or other complaint. Patient's blood pressure is reasonably controlled on current medication regimen. He was cleared for total left knee replacement surgery from a cardiovascular standpoint. Patient is now status post total left knee replacement cardiology now asked to see for perioperative cardiac medical management. January: Mr. Mayen is doing well this morning. He has not had any anginal complaint. His appetite is good. Afebrile, and his vital signs have been stable. He is progressing appropriately with PT. patient is scheduled for discharge home today to continue physical therapy and rehab with home health services. From a cardiac standpoint, he is stable for discharge. He will need an appointment for PT/INR check at [facility] clinic Tuesday or Tuesday of this upcoming week, and this has been ordered. We have spoken with patient and his regarding anticoagulation. They verbalized understanding the patient is to take Coumadin 7.5 mg by mouth daily, and after PT/INR check, Coumadin dosage will be adjusted accordingly. - Head Head exam: Present: normal inspection - Eye Eye exam: Present: EOMI Pupils: Present: ETHAN - Respiratory Respiratory exam: Present: clear to auscultation bilaterally - Cardiovascular Cardiovascular exam: Present: regular rate and rhythm - GI/Abdominal GI/Abdominal exam: Present: normal bowel sounds Result/EKG - Labs CBC & BMP: 02/16/17 06:15 02/15/17 05:24 Lab Results: I have reviewed the past 24 hour labs Labs: Laboratory Results - last 24 hr 02/15/17 02/15/17 02/15/17 11:05 17:20 20:57 WBC RBC Hgb Hct MCV MCH MCHC RDW Plt Count MPV Neut % (Auto) Lymph % (Auto) [place] % (Auto) Eos % (Auto) Baso % (Auto) Neut # (Auto) Lymph # (Auto) [place] # (Auto) Eos # (Auto) Baso # (Auto) Immature Gran % Nucleated RBC % Immature Gran # Nucleated RBCs # POC Glucose 162 H 218 H 179 H 02/16/17 02/16/17 06:15 07:15 WBC 8.2 RBC 4.67 Hgb 13.0 L Hct 39.6 L MCV 84.8 L MCH 28 MCHC 32.8 RDW 13.0 Plt Count 218 MPV 10.9 Neut % (Auto) 63.5 Lymph % (Auto) 22.5 [place] % (Auto) 12.0 Eos % (Auto) 1.2 Baso % (Auto) 0.4 Neut # (Auto) 5.2 Lymph # (Auto) 1.9 [place] # (Auto) 1.0 H Eos # (Auto) 0.1 Baso # (Auto) 0.0 Immature Gran % 0.4 Nucleated RBC % 0.0 Immature Gran # 0.03 Nucleated RBCs # 0.00 POC Glucose 143 H - EKG EKG results: interpreted by me, no acute changes Specialty Discharge - Follow Up or Referrals Follow up with: Yuri Dubose Jr., MD [Physician] - 03/17/17 9:10 am Luis Eduardo Menjivar MD [Physician] - 03/07/17 9:40 am (Coumadin clinic lab work to be done at Dr. Allen office on 9:15 then you will see the doctor.) I, Lauren Hough, DO, personally performed the services described in this documentation, ascribed by Angie Hernandez, NOEMÍ in my presence, and it is both accurate and complete .
== END 2017-02-16 13:26 | disposition home health service (06) | DRG 470 ==
LOC: N.SDSINP 05:34 → N.3E 11:13
PROVIDERS: ADMIT Orthopaedic Surgery; ATTEND Orthopaedic Surgery

== ENCOUNTER 2017-08-23 10:51 | Inpatient (IN) ==
[2017-08-23 11:22] LABS: Basophils # 0.1 10*3/uL (0.0-0.2); Basophils % 0.6 % (0.0-0.8); Eosinophils # 0.1 10*3/uL (0.0-0.87); Eosinophils % 0.9 % (0.00-10.9); Hematocrit 44.2 VOL% (42.0-52.0); Hemoglobin 14.6 GM/DL (14.0-18.0); Immature Granulocytes % 0.4 %; Immature Granulocytes Absolute 0.04 #; Lymphocytes # 2.2 10*3/uL (1.4-4.0); Mean Corpuscular Hemoglobin 28 PG (27-34); Mean Corpuscular Volume 83.2 FL (87-102); Mean Platelet Volume 10.3 FL (9.6-12.0); Monocytes # 0.9 10*3/uL (0.11-0.8); Monocytes % 10.3 % (1.7-12.7); Neutrophils # 5.7 10*3/uL (1.4-7.4); Neutrophils % 63.8 % (38.7-73.9); Platelet Count 282 T/CUMM (130-400); Red Blood Count 5.31 MC/CUMM (3.8-5.5); Red Cell Distribution Width 14.6 % (9.3-17.3)
[2017-08-23 11:37] LABS: INR 3.4
[2017-08-23 11:38] LABS: PT Patient Result 34.1 SECS; Partial Thromboplastin Time 42.5 SECS (0-40)
[2017-08-23 11:40] LABS: Alanine Aminotransferase 37 U/L (16-61); Albumin 4.1 G/DL (3.4-5.0); Alkaline Phosphatase 71 U/L (45-117); Aspartate Amino Transferase 25 U/L (0-37); Blood Urea Nitrogen 19 MG/DL (7-18); Calcium 9.5 MG/DL (8.5-10.1); Glucose 194 MG/DL (74-106); Osmolality,Calculated 285.4 MOS/KG (273-304); Potassium 3.8 MMOL/L (3.5-5.1); Sodium 140 MMOL/L (136-145); Total Protein 7.6 G/DL (6.4-8.3); Troponin I Only < 0.015 NG/ML (0.00-0.045)
[2017-08-23] MEDS ORDERED: MAGNESIUM SULF RIDER 2 GM in PREMIX 1 EACH IV PRN (16:38)
[2017-08-23] MEDS ORDERED: MORPHINE 2 MG/1 ML SYRINGE IV PRN (16:38)
[2017-08-23] MEDS ORDERED: DOCUSATE SODIUM 100 MG CAPSULE PO PRN (16:38)
[2017-08-23] MEDS ORDERED: ONDANSETRON 4 MG/2 ML VIAL IV PRN (16:38)
[2017-08-23] MEDS ORDERED: LACTULOSE 20 GM/30 ML UDCUP PO PRN (16:38)
[2017-08-23] MEDS ORDERED: MAGNESIUM SULF RIDER 4 GM in PREMIX 1 EACH IV PRN (16:38)
[2017-08-23] MEDS ORDERED: ACETAMINOPHEN 325 MG TABLET PO PRN (16:38)
[2017-08-23] MEDS ORDERED: ZALEPLON 5 MG CAPSULE PO PRN (16:38)
[2017-08-23] MEDS ORDERED: POTASSIUM CHLORIDE 20 MEQ TABLET PO PRN (16:41)
[2017-08-23] MEDS ORDERED: SIMETHICONE CHEW 80 MG TABLET PO PRN (16:42)
[2017-08-23 19:11] LABS: Apearance,Urine CLEAR (Clear); Bilirubin,Urine Negative (Negative); Blood, Urine Small mg/dL (Negative); Glucose,Urine (UA) Negative (Negative); Hyaline Casts,Urine 1 /LPF (0-3); Ketones,Urine 20 mg/dL (Negative); Mucus,Urine Many /LPF (Occasional); Nitrite,Urine Negative (Negative); Protein,Urine 30 MG/DL; RBC,Urine 2 /HPF (0-4); Squamous Epithelial Cell,Urine Occasional /HPF (0-10); Urine Color Yellow (Yellow); Urine Specific Gravity 1.024 (1.001-1.035); Urine Urobilinogen < 2.0 EU/DL (0.2-1.0); WBC,Urine 1 /HPF (0-6)
[2017-08-23 19:40] LABS: Troponin I Only < 0.015 NG/ML (0.00-0.045)
[2017-08-23] MEDS: hydrALAZINE 25 MG TABLET PO SCH (21:33)
[2017-08-23] MEDS: amLODIPine 10 MG TABLET PO SCH (21:33)
[2017-08-23 22:34] LABS: Troponin I Only < 0.015 NG/ML (0.00-0.045)
[2017-08-24] MEDS: ALBUTEROL 2.5 MG/3 ML NEB RESP TX SCH ×3 (00:16→19:50)
[2017-08-24 01:36] LABS: Basophils # 0.1 10*3/uL (0.0-0.2); Basophils % 0.6 % (0.0-0.8); Eosinophils # 0.1 10*3/uL (0.0-0.87); Eosinophils % 1.2 % (0.00-10.9); Hematocrit 44.5 VOL% (42.0-52.0); Hemoglobin 14.6 GM/DL (14.0-18.0); Immature Granulocytes % 0.2 %; Immature Granulocytes Absolute 0.02 #; Lymphocytes # 2.9 10*3/uL (1.4-4.0); Lymphocytes % 34.1 % (21.2-54.2); Mean Corpuscular HGB Conc 32.8 GM/DL (32-36); Mean Corpuscular Hemoglobin 27 PG (27-34); Mean Corpuscular Volume 83.5 FL (87-102); Mean Platelet Volume 10.2 FL (9.6-12.0); Monocytes # 0.9 10*3/uL (0.11-0.8); Monocytes % 10.5 % (1.7-12.7); Neutrophils # 4.5 10*3/uL (1.4-7.4); Neutrophils % 53.4 % (38.7-73.9); Platelet Count 262 T/CUMM (130-400); Red Blood Count 5.33 MC/CUMM (3.8-5.5); Red Cell Distribution Width 14.6 % (9.3-17.3); White Blood Count 8.4 T/CUMM (4-12)
[2017-08-24 01:49] LABS: INR 2.6
[2017-08-24 01:59] LABS: PT Patient Result 26.5 SECS
[2017-08-24 02:09] LABS: Troponin I Only < 0.015 NG/ML (0.00-0.045)
[2017-08-24 02:49] LABS: Albumin 3.9 G/DL (3.4-5.0); Bilirubin,Total 1.3 MG/DL (0.2-1.0); Osmolality,Calculated 287.1 MOS/KG (273-304); Potassium 3.8 MMOL/L (3.5-5.1); Risk Ratio 4.98; Total Protein 7.1 G/DL (6.4-8.3); VLDL CHOLESTEROL 26.2 MG/DL
[2017-08-24] MEDS: LEVOTHYROXINE 50 MCG TABLET PO SCH (07:50)
[2017-08-24] MEDS: PANTOPRAZOLE 40 MG TABLET PO SCH (08:52)
[2017-08-24] MEDS: traMADol 50 MG TABLET PO SCH (08:52)
[2017-08-24] MEDS: NEBIVOLOL 10 MG TABLET PO SCH (08:52)
[2017-08-24] MEDS: hydrALAZINE 25 MG TABLET PO SCH ×3 (08:52→20:48)
[2017-08-24] MEDS: GLIMEPIRIDE 4 MG TABLET PO SCH (08:52)
[2017-08-24] MEDS ORDERED: METOPROLOL SUCCINATE XL 50 MG TABLET PO SCH (09:00)
[2017-08-24] MEDS ORDERED: guaiFENesin/DM ER 600-30 MG TABLET PO PRN (11:45)
[2017-08-24] MEDS: amLODIPine 10 MG TABLET PO SCH (20:48)
[2017-08-25 05:49] LABS: Basophils # 0.1 10*3/uL (0.0-0.2); Basophils % 0.6 % (0.0-0.8); Eosinophils # 0.1 10*3/uL (0.0-0.87); Eosinophils % 1.4 % (0.00-10.9); Hematocrit 44.6 VOL% (42.0-52.0); Hemoglobin 14.4 GM/DL (14.0-18.0); Immature Granulocytes % 0.3 %; Immature Granulocytes Absolute 0.02 #; Lymphocytes # 2.3 10*3/uL (1.4-4.0); Lymphocytes % 29.2 % (21.2-54.2); Mean Corpuscular HGB Conc 32.3 GM/DL (32-36); Mean Corpuscular Hemoglobin 28 PG (27-34); Mean Corpuscular Volume 85.1 FL (87-102); Mean Platelet Volume 10.3 FL (9.6-12.0); Monocytes # 0.8 10*3/uL (0.11-0.8); Monocytes % 9.7 % (1.7-12.7); Neutrophils # 4.6 10*3/uL (1.4-7.4); Neutrophils % 58.8 % (38.7-73.9); Platelet Count 267 T/CUMM (130-400); Red Blood Count 5.24 MC/CUMM (3.8-5.5); Red Cell Distribution Width 14.7 % (9.3-17.3); White Blood Count 7.8 T/CUMM (4-12)
[2017-08-25 06:11] LABS: INR 1.5; PT Patient Result 15.8 SECS
[2017-08-25 06:28] LABS: Albumin 3.7 G/DL (3.4-5.0); Bilirubin,Total 2.4 MG/DL (0.2-1.0); Calcium 8.8 MG/DL (8.5-10.1); Potassium 4.3 MMOL/L (3.5-5.1); Total Protein 6.8 G/DL (6.4-8.3)
[2017-08-25] MEDS: ALBUTEROL 2.5 MG/3 ML NEB RESP TX SCH ×2 (07:13→19:40)
[2017-08-25] MEDS: NEBIVOLOL 10 MG TABLET PO SCH (08:54)
[2017-08-25] MEDS: PANTOPRAZOLE 40 MG TABLET PO SCH (08:55)
[2017-08-25] MEDS: traMADol 50 MG TABLET PO SCH (08:55)
[2017-08-25] MEDS: LEVOTHYROXINE 50 MCG TABLET PO SCH (08:55)
[2017-08-25] MEDS: hydrALAZINE 25 MG TABLET PO SCH ×3 (08:55→21:54)
[2017-08-25] MEDS: GLIMEPIRIDE 4 MG TABLET PO SCH (09:42)
[2017-08-25] MEDS ORDERED: ASPIRIN CHEW 81 MG TABLET PO ONE (09:59)
[2017-08-25] MEDS ORDERED: MAGNESIUM SULF RIDER 2 GM in PREMIX 1 EACH IV PRN (10:00)
[2017-08-25] MEDS ORDERED: SODIUM CHLORIDE 0.9% 1,000 ML IV SCH (10:00)
[2017-08-25] MEDS ORDERED: POTASSIUM CHLORIDE INJ 20 MEQ in SODIUM CHLORIDE 0.45% 250 ML IV PRN (10:00)
[2017-08-25] MEDS ORDERED: DIAZEPAM 5 MG TABLET PO ONE (15:00)
[2017-08-25] MEDS ORDERED: diphenhydrAMINE CAP 25 MG CAPSULE PO ONE (15:00)
[2017-08-25] MEDS ORDERED: MIDAZOLAM 2 MG/2 ML VIAL ONE ×2 (16:14→17:18)
[2017-08-25] MEDS ORDERED: MEPERIDINE 25 MG/1 ML VIAL ONE ×3 (16:14→18:19)
[2017-08-25] MEDS ORDERED: LIDOCAINE 1% 20 ML VIAL ONE ×2 (16:14→16:15)
[2017-08-25] MEDS ORDERED: LIDOCAINE 2% 20 ML VIAL ONE (16:16)
[2017-08-25] MEDS ORDERED: HEPARIN 5,000 UNIT/1 ML VIAL ONE (17:45)
[2017-08-25] MEDS ORDERED: TIROFIBAN 5,000 MCG/100 ML PREMIX IV ONE (18:08)
[2017-08-25] MEDS ORDERED: TICAGRELOR 90 MG TABLET ONE (18:35)
[2017-08-25] MEDS ORDERED: TIROFIBAN 5,000 MCG/100 ML PREMIX IV SCH (19:00)
[2017-08-25 20:54] LABS: Troponin I Only < 0.015 NG/ML (0.00-0.045)
[2017-08-25] MEDS: amLODIPine 10 MG TABLET PO SCH (21:53)
[2017-08-25] MEDS: TICAGRELOR 90 MG TABLET PO SCH (22:54)
[2017-08-26 05:12] LABS: Basophils # 0.1 10*3/uL (0.0-0.2); Basophils % 0.6 % (0.0-0.8); Eosinophils # 0.1 10*3/uL (0.0-0.87); Eosinophils % 1.1 % (0.00-10.9); Hemoglobin 14.4 GM/DL (14.0-18.0); Immature Granulocytes % 0.4 %; Immature Granulocytes Absolute 0.03 #; Lymphocytes # 2.1 10*3/uL (1.4-4.0); Lymphocytes % 24.4 % (21.2-54.2); Mean Corpuscular HGB Conc 32.7 GM/DL (32-36); Mean Corpuscular Hemoglobin 28 PG (27-34); Mean Corpuscular Volume 84.3 FL (87-102); Mean Platelet Volume 10.1 FL (9.6-12.0); Monocytes # 0.9 10*3/uL (0.11-0.8); Neutrophils # 5.4 10*3/uL (1.4-7.4); Neutrophils % 63.5 % (38.7-73.9); Platelet Count 274 T/CUMM (130-400); Red Blood Count 5.22 MC/CUMM (3.8-5.5); Red Cell Distribution Width 14.7 % (9.3-17.3); White Blood Count 8.5 T/CUMM (4-12)
[2017-08-26 05:20] LABS: INR 1.3; PT Patient Result 13.1 SECS
[2017-08-26 05:41] LABS: Calcium 8.9 MG/DL (8.5-10.1); Osmolality,Calculated 281.4 MOS/KG (273-304)
[2017-08-26 05:44] LABS: Albumin 3.7 G/DL (3.4-5.0); Bilirubin,Total 2.4 MG/DL (0.2-1.0); Calcium 8.7 MG/DL (8.5-10.1); Osmolality,Calculated 280.4 MOS/KG (273-304); Total Protein 6.7 G/DL (6.4-8.3)
[2017-08-26 05:46] LABS: Troponin I Only < 0.015 NG/ML (0.00-0.045)
[2017-08-26] MEDS: LEVOTHYROXINE 50 MCG TABLET PO SCH (07:18)
[2017-08-26] MEDS: ALBUTEROL 2.5 MG/3 ML NEB RESP TX SCH ×2 (07:21→19:51)
[2017-08-26] MEDS ORDERED: GLUCAGON 1 MG VIAL IM PRN (07:43)
[2017-08-26] MEDS ORDERED: DEXTROSE 50% 25 GM/50 ML VIAL IV PRN (07:43)
[2017-08-26] MEDS: NEBIVOLOL 10 MG TABLET PO SCH (09:26)
[2017-08-26] MEDS: PANTOPRAZOLE 40 MG TABLET PO SCH (09:26)
[2017-08-26] MEDS: TICAGRELOR 90 MG TABLET PO SCH (09:26)
[2017-08-26] MEDS: traMADol 50 MG TABLET PO SCH (09:27)
[2017-08-26] MEDS: ASPIRIN CHEW 81 MG TABLET PO SCH (09:27)
[2017-08-26] MEDS: hydrALAZINE 25 MG TABLET PO SCH (09:27)
[2017-08-26] MEDS: GLIMEPIRIDE 4 MG TABLET PO SCH (09:27)
[2017-08-26] MEDS ORDERED: FUROSEMIDE 40 MG/4 ML VIAL IV ONE (11:50)
[2017-08-26] MEDS ORDERED: CLOPIDOGREL 300 MG TABLET PO ONE (11:50)
[2017-08-26 11:53] LABS: Troponin I Only < 0.015 NG/ML (0.00-0.045)
[2017-08-26] MEDS: ENOXAPARIN 100 MG/ML SYRINGE SUBCUT SCH (13:23)
[2017-08-26] MEDS: FUROSEMIDE 40 MG/4 ML VIAL IV SCH (16:03)
[2017-08-26] MEDS ORDERED: WARFARIN 10 MG TABLET PO SCH (18:00)
[2017-08-26] MEDS: amLODIPine 10 MG TABLET PO SCH (20:49)
[2017-08-27 02:30] LABS: Basophils # 0.1 10*3/uL (0.0-0.2); Basophils % 0.5 % (0.0-0.8); Eosinophils # 0.1 10*3/uL (0.0-0.87); Hematocrit 46.3 VOL% (42.0-52.0); Hemoglobin 15.2 GM/DL (14.0-18.0); Immature Granulocytes % 0.2 %; Immature Granulocytes Absolute 0.02 #; Lymphocytes # 2.3 10*3/uL (1.4-4.0); Lymphocytes % 23.4 % (21.2-54.2); Mean Corpuscular HGB Conc 32.8 GM/DL (32-36); Mean Corpuscular Hemoglobin 27 PG (27-34); Mean Corpuscular Volume 83.4 FL (87-102); Mean Platelet Volume 10.3 FL (9.6-12.0); Monocytes # 1.2 10*3/uL (0.11-0.8); Monocytes % 11.7 % (1.7-12.7); Neutrophils # 6.3 10*3/uL (1.4-7.4); Neutrophils % 63.2 % (38.7-73.9); Platelet Count 317 T/CUMM (130-400); Red Blood Count 5.55 MC/CUMM (3.8-5.5); Red Cell Distribution Width 14.6 % (9.3-17.3); White Blood Count 9.9 T/CUMM (4-12)
[2017-08-27 02:33] LABS: INR 1.1; PT Patient Result 11.8 SECS
[2017-08-27] MEDS: ENOXAPARIN 100 MG/ML SYRINGE SUBCUT SCH (02:35)
[2017-08-27 03:56] LABS: Calcium 9.1 MG/DL (8.5-10.1); Magnesium 2.1 MG/DL (1.8-2.4); Osmolality,Calculated 281.7 MOS/KG (273-304); Potassium 3.9 MMOL/L (3.5-5.1)
[2017-08-27] MEDS: ALBUTEROL 2.5 MG/3 ML NEB RESP TX SCH (07:14)
[2017-08-27 08:15] VITALS: BP 132/84
[2017-08-27] MEDS: FUROSEMIDE 40 MG/4 ML VIAL IV SCH (08:25)
[2017-08-27] MEDS ORDERED: CLOPIDOGREL 75 MG TABLET PO SCH (09:00)
[2017-08-27] MEDS: GLIMEPIRIDE 4 MG TABLET PO SCH (09:21)
[2017-08-27] MEDS: LEVOTHYROXINE 50 MCG TABLET PO SCH (09:21)
[2017-08-27] MEDS: NEBIVOLOL 10 MG TABLET PO SCH (09:22)
[2017-08-27] MEDS: ASPIRIN CHEW 81 MG TABLET PO SCH (09:22)
[2017-08-27] MEDS: traMADol 50 MG TABLET PO SCH (09:23)
[2017-08-27] MEDS: PANTOPRAZOLE 40 MG TABLET PO SCH (09:23)
== END 2017-08-27 12:39 | disposition home or self-care (01) | DRG 247 ==
LOC: N.ED 10:51 → N.EDINP 10:51 → OBSVTOIN 16:38 → N.EDINP 19:08 → N.TELES 19:21
PROVIDERS: ADMIT Internal Medicine Cardiovascular Disease; ATTEND Internal Medicine Cardiovascular Disease

== ENCOUNTER 2018-02-03 10:29 | Inpatient (IN) ==
[2018-02-06 14:42] VITALS: BP 138/76
== END 2018-02-06 16:45 | disposition home or self-care (01) | DRG 287 ==
LOC: N.ED 10:29 → N.EDINP 16:50 → N.TELES 18:08
PROVIDERS: ADMIT Internal Medicine Cardiovascular Disease; ATTEND Internal Medicine Cardiovascular Disease
PROC: CLCCHCL (ICD-10-PCS; 2018-02-06 09:15)

== ENCOUNTER 2018-11-26 15:15 | Observation (INO) ==
[2018-11-26 16:56] LABS: Basophils # 0.1 10*3/uL (0.0-0.2); Basophils % 0.6 % (0.0-0.8); Eosinophils # 0.1 10*3/uL (0.0-0.87); Eosinophils % 1.2 % (0.00-10.9); Hematocrit 49.4 VOL% (42.0-52.0); Hemoglobin 15.8 GM/DL (14.0-18.0); Immature Granulocytes % 0.4 %; Immature Granulocytes Absolute 0.04 #; Lymphocytes # 2.3 10*3/uL (1.4-4.0); Mean Corpuscular Volume 88.5 FL (87-102); Mean Platelet Volume 9.9 FL (9.6-12.0); Monocytes % 10.4 % (1.7-12.7); Neutrophils % 65.4 % (38.7-73.9); Platelet Count 254 T/CUMM (130-400); Red Blood Count 5.58 MC/CUMM (3.8-5.5); Red Cell Distribution Width 13.9 % (9.3-17.3); White Blood Count 10.3 T/CUMM (4-12)
[2018-11-26 17:28] LABS: Albumin 4.1 G/DL (3.4-5.0); Bilirubin,Total 0.6 MG/DL (0.2-1.0); Calcium 9.1 MG/DL (8.5-10.1); Osmolality,Calculated 281.5 MOS/KG (273-304); Total Protein 7.6 G/DL (6.4-8.3)
[2018-11-26 17:52] LABS: Apearance,Urine CLEAR (Clear); Bilirubin,Urine Negative (Negative); Blood, Urine Negative (Negative); Glucose,Urine (UA) Negative (Negative); Ketones,Urine Negative (Negative); Mucus,Urine Occasional /LPF (Occasional); Nitrite,Urine Negative (Negative); Protein,Urine Negative; RBC,Urine 1 /HPF (0-4); Squamous Epithelial Cell,Urine Occasional /HPF (0-10); Urine Color Yellow (Yellow); Urine Specific Gravity 1.023 (1.001-1.035); Urine Urobilinogen < 2.0 EU/DL (0.2-1.0); WBC,Urine 1 /HPF (0-6)
[2018-11-26] MEDS ORDERED: traZODone 50 MG TABLET PO PRN (19:00)
[2018-11-26] MEDS ORDERED: ONDANSETRON 4 MG/2 ML VIAL IV PRN (19:00)
[2018-11-26] MEDS ORDERED: ACETAMINOPHEN 325 MG TABLET PO PRN (19:00)
[2018-11-26] MEDS ORDERED: NITROGLYCERIN SL 0.4 MG TABLET SL PRN (19:06)
[2018-11-26] MEDS ORDERED: DEXTROSE 50% 25 GM/50 ML SYRINGE IV PRN (19:30)
[2018-11-26] MEDS ORDERED: GLUCAGON 1 MG VIAL IM PRN (19:30)
[2018-11-26 20:39] LABS: Troponin I < 0.015 NG/ML (0.00-0.045)
[2018-11-26] MEDS ORDERED: METOPROLOL SUCCINATE XL 100 MG TABLET PO SCH (21:00)
[2018-11-26] MEDS: amLODIPine 10 MG TABLET PO SCH (21:20)
[2018-11-27] MEDS: KETOROLAC 0.5% OPH SOLN 5 ML BOTTLE BOTH EYES SCH ×2 (02:29→09:29)
[2018-11-27] MEDS: INSULIN REGULAR 100 UNIT/ML SUBCUT SCH ×3 (02:30→12:40)
[2018-11-27] MEDS: OFLOXACIN 0.3% OPH SOLN 5 ML BOTTLE BOTH EYES SCH ×2 (02:30→09:29)
[2018-11-27] MEDS: prednisoLONE ACETATE 1% OPH SUSP 5 ML BOTTLE BOTH EYES SCH ×2 (02:30→09:28)
[2018-11-27] MEDS: amLODIPine 10 MG TABLET PO SCH (02:31)
[2018-11-27 02:49] LABS: Troponin I < 0.015 NG/ML (0.00-0.045)
[2018-11-27 02:50] LABS: Basophils # 0.1 10*3/uL (0.0-0.2); Basophils % 0.7 % (0.0-0.8); Eosinophils # 0.1 10*3/uL (0.0-0.87); Eosinophils % 1.1 % (0.00-10.9); Hematocrit 45.4 VOL% (42.0-52.0); Hemoglobin 14.7 GM/DL (14.0-18.0); Immature Granulocytes % 0.3 %; Immature Granulocytes Absolute 0.03 #; Lymphocytes # 2.5 10*3/uL (1.4-4.0); Lymphocytes % 27.8 % (21.2-54.2); Mean Corpuscular HGB Conc 32.4 GM/DL (32-36); Mean Corpuscular Volume 87.5 FL (87-102); Mean Platelet Volume 10.5 FL (9.6-12.0); Monocytes % 10.5 % (1.7-12.7); Neutrophils % 59.6 % (38.7-73.9); Platelet Count 236 T/CUMM (130-400); Red Blood Count 5.19 MC/CUMM (3.8-5.5); White Blood Count 8.9 T/CUMM (4-12)
[2018-11-27 02:56] LABS: Albumin 3.3 G/DL (3.4-5.0); Bilirubin,Total 0.8 MG/DL (0.2-1.0); Calcium 8.6 MG/DL (8.5-10.1); Osmolality,Calculated 283.4 MOS/KG (273-304); Thyroid Stimulating Hormone 0.771 uIU/ml (0.358-3.74); Total Protein 6.1 G/DL (6.4-8.3)
[2018-11-27 03:08] LABS: Risk Ratio 4.16; VLDL CHOLESTEROL 17.4 MG/DL
[2018-11-27 03:15] LABS: INR 1.7
[2018-11-27] MEDS ORDERED: ALBUTEROL 2.5 MG/3 ML NEB RESP TX SCH (07:00)
[2018-11-27] MEDS ORDERED: LEVOTHYROXINE 50 MCG TABLET PO SCH (07:30)
[2018-11-27] MEDS ORDERED: ASPIRIN EC 325 MG TABLET PO SCH (09:00)
[2018-11-27] MEDS ORDERED: amLODIPine 10 MG TABLET PO SCH (09:00)
[2018-11-27] MEDS ORDERED: ISOSORBIDE MONONITRATE 60 MG TABLET PO SCH (09:00)
[2018-11-27] MEDS ORDERED: FUROSEMIDE 20 MG TABLET PO SCH (09:00)
[2018-11-27] MEDS ORDERED: FERROUS SULFATE 325 MG TABLET PO SCH (09:00)
[2018-11-27] MEDS ORDERED: traMADol 50 MG TABLET PO SCH (09:00)
[2018-11-27] MEDS ORDERED: RANOLAZINE 500 MG TABLET PO SCH (09:30)
[2018-11-27] MEDS ORDERED: PANTOPRAZOLE 40 MG TABLET PO SCH (09:30)
[2018-11-27] MEDS ORDERED: CLOPIDOGREL 75 MG TABLET PO ONE (11:32)
[2018-11-27 12:15] VITALS: BP 140/93
[2018-11-28] MEDS ORDERED: CLOPIDOGREL 75 MG TABLET PO SCH (09:00)
== END 2018-11-27 12:59 | disposition home or self-care (01) ==
LOC: N.ED 15:15 → N.EDINP 15:15 → N.TELEN 19:51
PROVIDERS: ADMIT Internal Medicine Nephrology; ATTEND Internal Medicine Nephrology